=== PATIENT | male | born 1970 | race Caucasian/White ===

== ENCOUNTER 2016-07-01 18:05 | Inpatient (IN) | payer SELFPAY ==
[~2016-07-01] VITALS: Ht 165.1 cm; Wt 67.1 kg
[2016-07-01] MEDS: BLOOD GLUCOSE MONITORING 1 DEV DEV FS SCH ×2 (03:00→04:00)
[~2016-07-01 18:05] MED LIST: INSULIN
[2016-07-01 18:28] VITALS: BP 143/81
[2016-07-01] MEDS ORDERED: NACL 0.9% 1,000 ML IV SCH ×2 (18:38→22:02)
[2016-07-01] MEDS ORDERED: KETOROLAC 30 MG/ML VIAL IVP ONE (18:40)
--- NOTE | 2016-07-01 18:50 | NUR ---
PT TAKEN TO BED 6
--- NOTE | 2016-07-01 18:52 | NUR ---
PT TAKEN TO X RAY
--- NOTE | 2016-07-01 19:20 | NUR ---
RECEIVED REPORT FROM MARCELINO ISAACS. ASSUMED PT CARE.
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
--- NOTE | 2016-07-01 19:32 | NUR ---
Dr. Milan evaluating patient at bedside.
[2016-07-01] MEDS ORDERED: NACL 0.9% 1,000 ML IV ONE ×2 (19:35→19:45)
[2016-07-01] MEDS ORDERED: ONDANSETRON 4 MG/2 ML VIAL IVP ONE (19:45)
[2016-07-01] MEDS ORDERED: MORPHINE SULFATE 4 MG/ML SYR IVP ONE (19:45)
--- NOTE | 2016-07-01 20:29 | NUR ---
RT AT BEDSIDE FOR ABG
[2016-07-01] MEDS ORDERED: POTASSIUM CHL 20 MEQ/NACL 0.9% 1,000 ML IV ONE ×2 (20:30→21:27)
[2016-07-01] MEDS ORDERED: INSULIN HUMAN REGULAR 100 UNITS in NACL 0.9% 100 ML IV ONE (20:35)
--- NOTE | 2016-07-01 20:50 | NUR ---
ABG DONE WITHOUT INCIDENT. RESULTS GIVEN TO DR CAMARA AND SUBMITTED ON [employer]. FAMILY AT BEDSIDE.
[2016-07-01] MEDS ORDERED: INSULIN HUMAN REGULAR IV SCH (20:55)
[2016-07-01] MEDS ORDERED: NACL IV SCH (20:55)
[2016-07-01] MEDS ORDERED: [UNRECOGNIZED DRUG - OTHER] IV SCH (20:55)
--- NOTE | 2016-07-01 21:15 | NUR ---
BLOOD SUGAR 412 MG/DL, STARTED ON REGULAR INSULIN IV DRIP AT 5 UNITS/HR. WITNESSED AND CO-SIGNED BY ROCK ISAACS.
[2016-07-01] MEDS ORDERED: ACETAMINOPHEN 325 MG TAB PO PRN (21:55)
[2016-07-01] MEDS ORDERED: MORPHINE SULFATE 2 MG/ML SYR IVP PRN (21:55)
[2016-07-01] MEDS ORDERED: ONDANSETRON 4 MG/2 ML VIAL IVP PRN (21:55)
[2016-07-01] MEDS ORDERED: DEXTROSE 50% 50 ML SYR IVP PRN (22:05)
[2016-07-01] MEDS ORDERED: INSULIN HUMAN REGULAR 100 UNITS in NACL 0.9% 100 ML IV SCH (22:05)
[2016-07-02] VITALS (11 sets, daily range): BP systolic 114–166; BP diastolic 73–100
--- NOTE | 2016-07-02 00:38 | NUR ---
ACCU 236 NOW, REG INSULIN DRIP ADJUSTED TO 2 UNITS/ML PER MD DR LEDEZMA AWARE
[2016-07-02] MEDS ORDERED: POTASSIUM CHL 20 MEQ/NACL 0.9% 1,000 ML IV ONE (01:05)
[2016-07-02] MEDS ORDERED: MORPHINE SULFATE 5 MG/ML VIAL IVP ONE (01:20)
[2016-07-02] MEDS ORDERED: ONDANSETRON 4 MG/2 ML VIAL IVP ONE (01:20)
[2016-07-02] MEDS ORDERED: DEXT 5% / NACL 0.9% 1,000 ML IV ONE (01:25)
[2016-07-02] MEDS ORDERED: POTASSIUM CHLORIDE IV ONE (01:25)
[2016-07-02] MEDS ORDERED: NACL 0.9% IV ONE (01:25)
[2016-07-02] MEDS ORDERED: IRR IV ONE (01:25)
[2016-07-02] MEDS ORDERED: MORPHINE SULFATE 10 MG/ML SYR ONE (01:42)
[2016-07-02] MEDS: BLOOD GLUCOSE MONITORING 1 DEV DEV FS SCH ×24 (02:05→23:11)
[2016-07-02] MEDS ORDERED: POTASSIUM CHLORIDE 30 MEQ in NACL 0.9% 1,000 ML IV SCH (02:35)
--- NOTE | 2016-07-02 02:45 | NUR ---
RECEIVED PATIENT TRANSFERRED FROM ER VIA GURNEY, INITIAL ASSESSMENT COMPLETED, PATIENT IS AAOX4, ABLE TO FOLLOW COMMANDS AND MAKE NEEDS KNOWN, ON RA, BREATHING EVEN AND UNLABORED, NO S/S OF SOB/DISTRESS NOTED, LUNG SOUNDS CLEAR. SR ON TRANSACTION COORDINATOR, DENIES ANY CHEST PAIN. IV SITE ON RIGHT AC 20 GA RUNNING INSULIN DRIP AT 3 UNIT PER HOUR, IV SITE ON RIGHT HAND 20 GA RUNNING D5 NS AT 125ML/HR. C/O ABD PAIN RADIATION TO LEFT LOWER BACK, 07/05. ACTIVE BOWEL SOUNDS. AFEBRILE, SKIN IS WARM AND DRY TO TOUCH, OLD SCAR WITH SCAB NOTED ON RLE. ABLE TO MOVE ALL EXTREMITIES. SCD'S ON BLE. SAFETY CHECKED, ORIENTED PATIENT TO NEW ENVIRONMENT AND SURROUNDINGS, CALL LIGHT WITHIN REACH, PLACED PATIENT ON COMFORT POSITION, WILL CONTINUE TO MONITOR.
--- NOTE | 2016-07-02 03:00 | NUR ---
Patient will be admitted to care of DR. HAMMONDS . Admited to ICU. Will go to room #2. Belongings list completed. Report to JUANCARLOS ISAACS.
--- NOTE | 2016-07-02 03:10 | NUR ---
PATIENT IS VOMITING WITH SMALL AMOUNT CLEAR YELLOW EMESIS, EDUCATED AND MEDICATED, PAIN ON LEFT ABD TO LEFT FLANK, TOLERABLE. VSS.
--- NOTE | 2016-07-02 03:47 | NUR ---
CALLED DR UGALDE AT 0328 AM FOR CLARIFY ORDER IV BECAUSE ED TOLD TO CHANGE IV FROM D5 NS AT125 ML/H RUNNING WITH PT TO 0.9NS + KCL 30 MEQ AT 125 ML/H K AT 0005 K 4.5 HE TOLD CONTINUE ORDER, THEN HE CALL BACK AGAIN DO NOT FOLLOW ER ORDER WAIT ORDER FROM DR MCELROY ,NOW IV RUNNING D5 NS AT 125 ML/H UNTIL FUTURE ORDER.AND INSULIN DRIP 3 UNITS/H BS 254
[2016-07-02] MEDS ORDERED: POTASSIUM CHL 20 MEQ/D5-1/2NS 1,000 ML IV PRN (03:55)
[2016-07-02] MEDS: POTASSIUM CHL 20 MEQ/NACL 0.9% 1,000 ML IV SCH ×7 (04:25→19:52)
--- NOTE | 2016-07-02 04:30 | NUR ---
PATIENT IS RESTING IN BED QUIETLY, VSS. NO C/O PAIN AT THIS TIME.
--- NOTE | 2016-07-02 06:00 | NUR ---
PT RESTING IN BED, NO CHANGE OF CONDITION AT THIS TIME, VSS, NO C/O PAIN.
--- NOTE | 2016-07-02 07:20 | NUR ---
REPORT GIVEN TO FERNY ESCOBAR FOR CONTINUE OF CARE, PATIENT IS AWAKE, C/O PAIN AND N/V NOTED, STILL ON INSULIN DRIP, VSS. DR. HAMMONDS AT BEDSIDE.
--- NOTE | 2016-07-02 07:25 | NUR ---
RECEIVED REPORT FROM FERNY BAUER. PT IS ON ROOM AIR. PT IS AAOX4. IV TO RIGHT AC #20 AND RIGHT HAND #20 PATENT AND INTACT. PT IS CURRENTLY ON INSULIN DRIP RUNNING AT 2 UNITS/HR. OLD SCAR NOTED TO RIGHT LOWER EXTREMITY, SKIN IS OTHERWISE INTACT. SAFETY PRECAUTIONS IN PLACE WITH BED IN LOWEST POSITION AND SIDE RAILS UP. CALL LIGHT WITHIN REACH. PT IS CURRENTLY SINUS RHYTHM ON THE MONITOR. WILL CONTINUE TO MONITOR.
--- NOTE | 2016-07-02 07:30 | NUR ---
DR. HAMMONDS' GROUP IN TO SEE PT. WILL FOLLOW UP ON ORDERS
[2016-07-02] MEDS: DOCUSATE SODIUM 100 MG GELCAP PO SCH (08:04)
[2016-07-02] MEDS: FAMOTIDINE 20 MG TAB PO SCH (08:04)
--- NOTE | 2016-07-02 08:13 | NUR ---
PATIENT HAS BEEN SCREENED AND CATEGORIZED HIGH NUTRITION RISK. PATIENT WILL BE SEEN WITHIN 1-2 DAYS OF ADMISSION. 07/02/16-07/03/[address]
--- NOTE | 2016-07-02 08:16 | NUR ---
PT C/O NAUSEA AND PAIN TO ABDOMEN AND LOWER BACK, ACHING AND CONTINUOUS, 10/10. ADMINISTERED ZOFRAN AND MORPHINE ORDERED PRN. PT TOLERATED WELL. WILL REASSESS.
[2016-07-02] MEDS: LEVOFLOXACIN 500 MG/D5W PREMIX 100 ML IV SCH (08:23)
[2016-07-02] MEDS: PANTOPRAZOLE 40 MG INJ VIAL IVP SCH (08:23)
--- NOTE | 2016-07-02 09:04 | NUR ---
G DRAWN ON RR WITHOUT INCIDENT AND RESULTS GIVEN TO DR. BUSTILLSO
--- NOTE | 2016-07-02 09:52 | NUR ---
CHECKED ON PT. RESTING AT THIS TIME, AROUSABLE. CALL LIGHT WITHIN REACH.
--- NOTE | 2016-07-02 11:22 | NUR ---
PT'S SISTERS PRESENT AT BEDSIDE.
[2016-07-02] MEDS: KETOROLAC 30 MG/ML VIAL IVP PRN ×2 (11:45→20:45)
--- NOTE | 2016-07-02 11:47 | NUR ---
PT C/O PAIN TO LEFT LOWER BACK, THROBBING AND CONTINUOUS, 10/10. ADMINISTERED KETOROLAC ORDERED PRN. PT TOLERATED WELL. WILL REASSESS.
--- NOTE | 2016-07-02 12:35 | NUR ---
CHECKED ON PT. RESTING AT THIS TIME, AROUSABLE. CALL LIGHT WITHIN REACH.
--- NOTE | 2016-07-02 14:02 | NUR ---
07/02/16 RD INITIAL ASSESSMENT COMPLETED PLEASE REFER TO NUTRITION ASSESSMENT UNDER CARE ACTIVITY FOR ESTIMATED NUTRITIONAL NEEDS. RD RECOMMENDATIONS: 1. CONTINUE NPO MEDICALLY NECESSARY PER MD 2. WHEN MEDICALLY APPROPRIATE CONSIDER ADVANCE DIET TOLERATED TO CCHO 60 GM, CARDIAC DIET. 3. RD PROVIDED PT WITH DM DIET EDUCATION 4. RD WILL F/U 3-5 DAYS; MODERATE RISK. DONNA BOOTH RD
--- NOTE | 2016-07-02 14:23 | NUR ---
CHECKED ON PT. ALL NEEDS MET AT THIS TIME. CALL LIGHT WITHIN REACH.
[2016-07-02] MEDS: METOCLOPRAMIDE 10 MG/2 ML INJ VIAL IVP PRN (14:38)
--- NOTE | 2016-07-02 14:40 | NUR ---
PT C/O NAUSEA. ADMINISTERED REGLAN ORDERED PRN. PT TOLERATED WELL. WILL CONTINUE TO MONITOR.
--- NOTE | 2016-07-02 15:26 | NUR ---
CHECKED ON PT. RESTING AT THIS TIME, AROUSABLE. CALL LIGHT WITHIN REACH.
--- NOTE | 2016-07-02 16:40 | NUR ---
G DRAWN ON LR WITHOUT INCIDENT AND RESULTS GIVEN TO DR. BUSTILLOS
--- NOTE | 2016-07-02 18:41 | NUR ---
PT'S SISTERS PRESENT AT BEDSIDE. CALL LIGHT WITHIN REACH.
--- NOTE | 2016-07-02 19:14 | NUR ---
ENDORSED CARE TO FERNY WEEKS. PT IN STABLE CONDITION.
--- NOTE | 2016-07-02 20:00 | NUR ---
PATIENT SLEEPING, EASILY AROUSED, SR ON THE MONITOR, ON ROOM AIR, WITH IVF OF NS AT 20 MEQ KCL AT 200 MLS/HR, IV SITE ON RAC G#20 AND SALINE LOCK ON RIGHT HAND BOTH PATENT AND INTACT, BLOOD SUGAR VIA FINGERSTICK 174, REGULAR INSULIN DRIP TO REMAIN AT 1 UNIT/HR PER PROTOCOL, DENIES PAIN.
[2016-07-02] MEDS: AMITRIPTYLINE 25 MG TAB PO SCH (20:45)
--- NOTE | 2016-07-02 21:15 | NUR ---
PAIN REASSESSMENT DONE AT THIS TIME AFTER GIVING PATIENT TORADOL 30 MG IVP AT 2044 FOR THROBBING LOWER BACK PAIN, 02/04. PATIENT SLEEPING COMFORTABLY.
--- NOTE | 2016-07-02 21:42 | NUR ---
SPOKE WITH DR. UGALDE AND INFORMED CURRENT ANION GAP DRAWN AT 2030 (15.1), PER MD TO GIVE HIM A CALL IF ANION GAP IS TRENDING HIGH ON THE NEXT BMP AT 0000.
--- NOTE | 2016-07-02 22:28 | NUR ---
BS AT 2205 WAS 167, REMAINS AT 1 UNIT/HR OF REGULAR INSULIN DRIP, PT SLEEPING COMFORTABLY.
[2016-07-03] VITALS (10 sets, daily range): BP systolic 117–177; BP diastolic 63–109
[2016-07-03] MEDS: BLOOD GLUCOSE MONITORING 1 DEV DEV FS SCH ×11 (00:02→21:59)
[2016-07-03] MEDS: HYDROcodone/APAP 7.5/325 MG 1 TAB PO PRN ×2 (00:02→08:47)
--- NOTE | 2016-07-03 00:27 | NUR ---
NORCO 1 TAB GIVEN AT 0002 FOR LOWER BACK PAIN, BS 166, REGULAR INSULIN DRIP STILL AT 1 UNIT/HR.
--- NOTE | 2016-07-03 00:43 | NUR ---
DR. UGALDE NOTIFIED ABOUT ANION GAP RESULT AT 0000 (17.7), NO ORDER GIVEN.
[2016-07-03] MEDS: POTASSIUM CHL 20 MEQ/NACL 0.9% 1,000 ML IV SCH ×2 (01:10→05:39)
--- NOTE | 2016-07-03 02:28 | NUR ---
PATIENT ASLEEP, CONTINUE BLOOD SUGAR CHECK Q1H, BS AT 0200 WAS 182.
--- NOTE | 2016-07-03 04:15 | NUR ---
SLEEPING COMFORTABLY, BS 181.
[2016-07-03] MEDS: KETOROLAC 30 MG/ML VIAL IVP PRN ×3 (05:13→20:42)
--- NOTE | 2016-07-03 06:00 | NUR ---
BS 156, CONTINUE 1UNIT/HR OF REGULAR INSULIN DRIP.
--- NOTE | 2016-07-03 06:23 | NUR ---
TORADOL 30 MG IVP GIVEN AT 0513. AM CARE PROVIDED, PATIENT SLEEPING NOW.
--- NOTE | 2016-07-03 07:32 | NUR ---
RECEIVED REPORT FROM MICKY ISAACS. PT IS SLEEPING BUT EASILY AROUSED. BEDSIDE MONITOR SHOWS SR. PT ON ROOM AIR, NO S/S OF RESPIRATORY DISTRESS NOTED. ABDOMEN SOFT, NONTENDER, WITH ACTIVE BOWEL SOUND. IV TO RIGHT HAND #20 RUNNING 0.9% NS + KCL 20 MEQ AT 200 ML/HR, INSULIN DRIP AT 2 UNITS/HR. BOTH INTACT AND PATENT. IV TO LEFT AC # 20 SALINE LOCKED. FREELY FLUSHED. PT CAN MOVE ALL HIS EXTREMITIES. NO C/O PAIN AT THIS TIME, HOB ELEVATED TO 30 DEGREES WITH LOW BED POSITION,SIDE RAILS UP X2. CALL LIGHT IN REACH, POC DISCUSSED WITH PT, PT VERBALIZED UNDERSTANDING.WILL CONTINUE TO MONITOR.
[2016-07-03] MEDS ORDERED: DEXTROSE 50% 50 ML SYR IVP PRN (07:35)
[2016-07-03] MEDS: INSULIN LISPRO SLIDING SCALE 100 UNITS/ML VIAL SUBQ PRN ×4 (07:58→22:05)
--- NOTE | 2016-07-03 08:00 | NUR ---
CLARIFIED WITH DR. BUSTILLOS. D/C INSULIN DRIP 2HR AFTER SUBQ HUMALOG SLIDING SCALE COVERED.
[2016-07-03] MEDS: NACL 0.9% 1,000 ML IV SCH ×3 (08:01→18:33)
--- NOTE | 2016-07-03 08:30 | NUR ---
APPLIED K-PAD TO PT BACK.
[2016-07-03] MEDS: FAMOTIDINE 20 MG TAB PO SCH (08:48)
[2016-07-03] MEDS: ATORVASTATIN 20 MG TAB PO SCH (08:48)
[2016-07-03] MEDS: DOCUSATE SODIUM 100 MG GELCAP PO SCH (08:48)
[2016-07-03] MEDS: CYCLOBENZAPRINE 10 MG TAB PO SCH ×3 (08:49→17:05)
[2016-07-03] MEDS: PANTOPRAZOLE 40 MG INJ VIAL IVP SCH (08:50)
[2016-07-03] MEDS: LEVOFLOXACIN 500 MG/D5W PREMIX 100 ML IV SCH (08:50)
[2016-07-03] MEDS ORDERED: ATORVASTATIN 20 MG TAB PO SCH (09:00)
--- NOTE | 2016-07-03 10:02 | NUR ---
INSULIN DRIP DISCONTINUED.
--- NOTE | 2016-07-03 11:00 | NUR ---
WOUND CARE EVALUATION NOTES: REASON FOR EVALUATION: RIGHT MEDIAL LOWER EXTREMITY SCARRING COMPLETE SKIN ASSESSMENT DONE ON THIS 46 Y/O MALE PATIENT FROM HOME TO [facility], WITH INITIAL DIAGNOSIS OF DIABETIC KETOACIDOSIS. PAST MEDICAL HISTORY INCLUDE DM2. ALL ABOVE INFORMATION WAS OBTAINED FROM THE ADMISSION H&P. LABS ARE WBC 8.7, H/H 13.3/38.4, GLUCOSE 183, ALBUMIN 4.0, PT/INR 9.2/1.0 AND PTT 23.8. CURRENT MEDS INCLUDE INSULIN, LEVOFLOXACIN, KETOROLAC AND NORCO. PATIENT IS AWAKE, COMPLAINING OF EPIGASTRIC PAIN. PRIMARY RN IS AWARE, SHE STATED THAT SHE GAVE PAIN MEDS EARLIER. SKIN WARM TO TOUCH WNL, TOENAILS WNL, NO EDEMA, WITH HAIR GROWTH AND +2 BILATERAL PEDAL PULSES. URINE AND BOWEL CONTINENT, ABLE TO MAKE HIS NEEDS KNOWN. INITIAL PLAN OF CARE AND PRESSURE PREVENTIVE MEASURES DISCUSSED, UNABLE TO VERBALIZE FULL UNDERSTANDING DUE TO EPIGASTRIC PAIN. WILL REINFORCE TEACHING. INTEGUMENTARY: RIGHT MEDIAL LOWER LEG - SURGICAL - NUR ESCHAR OVER SCARRING. RECOMMENDATIONS: -PAINT RIGHT MEDIAL LOWER LEG WITH BETADINE BIDWC AND LEAVE OPEN TO AIR -TURN AND REPOSITION PATIENT Q2H -ASSESS AND MONITOR SKIN CONDITION DURING POSITION CHANGE, PLEASE PAY PARTICULAR ATTENTION TO SACRALCOCCYX, ELBOWS AND HEELS -OFFLOAD BILATERAL HEELS BY PLACING PILLOWS UNDER CALVES AT ALL TIMES, UNLESS OTHERWISE CONTRAINDICATED -PODIATRY CONSULT IF OK WITH PMD. RECOMMENDATIONS DISCUSSED WITH PRIMARY RN AND RESIDENT PHYSICIAN, DR. BUSTILLOS. WILL FOLLOW UP Q 7 DAYS AND PRN. PLEASE CONTACT [facility] FOR ANY CONCERNS, QUESTIONS AND CHANGES IN WOUND CONDITION.
--- NOTE | 2016-07-03 12:00 | NUR ---
PT IS SLEEPING BUT EASILY AWAKING BY ASSESSMENT. [employer] ADVISORS SHOWS SR. NO S/S OF RESPIRATORY DISTRESS NOTED. WILL CONTINUE TO MONITOR.
--- NOTE | 2016-07-03 12:20 | NUR ---
LUNCH TRAY SERVED, PT REFUSED AND JUST WANTED TO SLEEP.
--- NOTE | 2016-07-03 14:14 | NUR ---
NOTIFIED DR. BUSTILLOS PT HAS EPIGASTRIC PAIN AND NO APPETITE.
--- NOTE | 2016-07-03 15:36 | NUR ---
PT SLEEPING. NO S/S OF RESPIRATORY DISTRESS NOTED. BP 134/81. HR 76. RESP 12, O2 SAT 100%. WILL CONTINUE TO MONITOR.
--- NOTE | 2016-07-03 16:40 | NUR ---
DR. BUSTILLOS CAME IN TO ASSESS PT, UPDATED PT'S CONDITION, ORDER RECEIVED, WILL CARRY OUT.
[2016-07-03] MEDS: METOCLOPRAMIDE 10 MG/2 ML INJ VIAL IVP PRN (17:03)
--- NOTE | 2016-07-03 18:00 | NUR ---
PT AWAKE, ALERT, ORIENTED.PT'S AT BEDSIDE. UPDATED PT'S CONDITION. PT'S AWARE PT WILL BE TRANSFERRED TO [facility].
[2016-07-03] MEDS: ALUMINUM HYD/MAG/SIMETHICONE 30 ML UDC PO PRN (18:16)
--- NOTE | 2016-07-03 18:16 | NUR ---
PT HAS ABDOMINAL PAIN. MYLANTA 30 ML PO GIVEN.TRANSFERRED PT TO [facility] . BEDSIDE REPORT GIVEN TO [facility].
--- NOTE | 2016-07-03 18:45 | NUR ---
RECEIVED REPORT FROM AIRLINE MANAGERIAL SUPERVISOR. PT IS SLEEPING. NO S/S OF ACUTE CARDIAC/RESPIRATORY DISTRESS OR DISCOMFORT. GUEST AT BEDSIDE. VS STABLE. SAFETY MEASURES IN PLACE, CALL LIGHT WITHIN REACH. WILL CONTINUE PLAN OF CARE AND CONTINUE TO MONITOR.
--- NOTE | 2016-07-03 19:30 | NUR ---
ENDORSED REPORT FOR ASSISTANT TEACHING PROFESSOR RN. PT HAS NO S/S OF ACUTE DISTRESS OR DISCOMFORT. PT IN STABLE CONDITION.
--- NOTE | 2016-07-03 19:31 | NUR ---
RECD. RESTING IN BED, SLEEPING BUT EASILY WAKES UP WHEN NAME CALLED. RESPIRATION EVEN AND UNLABORED. SEEMS DROWSY. WENT BACK TO SLEEP AT ONCE AFTER ANSWERING QUESTIONS. IV OF NS AT 125 ML/HR INFUSING RIGHT HAND G20. NOTED SCAB ON THE RIGHT LOWER EXTREMITY. ON BILATERAL LE SEQUENTIALS. PLAN OF CARE DISCUSSED WITH AND PATIENT. VERBALIZED UNDERSTANDING. DENIES PAIN 0/10. VS STABLE.
[2016-07-03] MEDS: AMITRIPTYLINE 25 MG TAB PO SCH (21:51)
--- NOTE | 2016-07-03 22:00 | NUR ---
Patient's Plan of Care was discussed and reviewed with RECREATIONAL SPORTS DIRECTOR: LAURA ZAYAS
[2016-07-04] VITALS: BP 156/96
--- NOTE | 2016-07-04 | NUR ---
SLEEPING COMFORTABLY IN BED.
[2016-07-04] MEDS: METOCLOPRAMIDE 10 MG/2 ML INJ VIAL IVP PRN ×3 (00:46→21:09)
--- NOTE | 2016-07-04 00:46 | NUR ---
VOMITED MODERATE AMOUNT OF YELLOWISH FLUID, MEDICATED WITH REGLAN 5 MG. IVP BY FERNY KENNEDY.
[2016-07-04] MEDS: NACL 0.9% 1,000 ML IV SCH ×5 (02:18→20:59)
[2016-07-04 03:10] VITALS: BP 158/95
[2016-07-04] MEDS: KETOROLAC 30 MG/ML VIAL IVP PRN ×2 (03:11→08:58)
--- NOTE | 2016-07-04 06:00 | NUR ---
VOMITED SMALL AMOUNT OF YELLOWISH LIQUID, ICE CHIPS GIVEN. WILL MEDICATE ORDERED.
[2016-07-04] MEDS: BLOOD GLUCOSE MONITORING 1 DEV DEV FS SCH ×4 (06:23→21:04)
[2016-07-04] MEDS: INSULIN LISPRO SLIDING SCALE 100 UNITS/ML VIAL SUBQ PRN ×4 (06:24→21:04)
--- NOTE | 2016-07-04 07:05 | NUR ---
RECEIVED REPORT FROM NIGHT NURSE, PT IS AAOX4 PASHTO SPEAKING, PT IS ON ROOM AIR, IV TO RIGHT AC 2OG SALINE LOCK, RIGHT HAND 2OG INFUSING WELL, RIGHT LOWER LEG OLD SURGICAL SCAB. INITIAL ASSESSMENT COMPLETED, REVIEWED PLAN OF CARE WITH PT PT VERBALIZED UNDERSTANDING, ALL SAFETY PRECAUTIONS MET, ALL NEEDS MET. CALL LIGHT WITHIN REACH. WILL CONTINUE TO MONITOR.
--- NOTE | 2016-07-04 07:05 | NUR ---
RESTING IN BED, CONDITION REMAIN STABLE. ENDORSED TO FERNY MCMAHON FOR CONTINUITY OF CARE.
[2016-07-04 08:00] VITALS: BP 155/90
[2016-07-04] MEDS: FAMOTIDINE 20 MG TAB PO SCH (08:57)
[2016-07-04] MEDS: CYCLOBENZAPRINE 10 MG TAB PO SCH ×3 (08:57→16:48)
[2016-07-04] MEDS: DOCUSATE SODIUM 100 MG GELCAP PO SCH (08:57)
[2016-07-04] MEDS: ATORVASTATIN 20 MG TAB PO SCH (08:57)
[2016-07-04] MEDS: LEVOFLOXACIN 500 MG/D5W PREMIX 100 ML IV SCH (08:57)
[2016-07-04] MEDS: PANTOPRAZOLE 40 MG INJ VIAL IVP SCH (08:58)
--- NOTE | 2016-07-04 08:58 | NUR ---
DUE MEDICATIONS GIVEN, PT C/O OF EPIGASTRIC PAIN 8/10 MEDICATED PER MD ORDERS. PT VOMITED 100ML. PT STATES THAT MILK HELPS WITH THE PAIN.
--- NOTE | 2016-07-04 11:01 | NUR ---
CHECKED IN ON PT PT CURRENTLY SLEEPING. CALL LIGHT WITHIN REACH. WILL CONTINUE TO MONITOR.
--- NOTE | 2016-07-04 12:15 | NUR ---
DUE MEDICATIONS GIVEN. PT C/O NAUSEA, REGLAN DIRECTOR WEIGHTS AND MEASURES PER MD ORDERS. PT CURRENTLY RESTING IN BED. ALL NEEDS MET. PT STATES BACK DISCOMFORT BUT REFUSED THE HEATING PAD. CALL LIGHT WITHIN REACH. WILL CONTINUE TO MONITOR.
--- NOTE | 2016-07-04 13:06 | NUR ---
APPLIED BETADINE TO LEFT RIGHT LOWER MEDIAL OLD SURGICAL SCAB. CALL LIGHT WITHIN REACH. WILL CONTINUE TO MONITOR.
[2016-07-04] MEDS ORDERED: HYDROmorphone 1 MG/ML AMP IVP SCH (13:25)
[2016-07-04] MEDS ORDERED: NACL 0.9% 500 ML IV SCH (13:35)
--- NOTE | 2016-07-04 13:50 | NUR ---
BOLUS OF 500NS ADMINISTERED AT THIS TIME,PAIN MEDIATION GIVEN PER MD ORDERS. CALL LIGHT WITHIN [facility] WILL CONTINUE TO MONITOR.
--- NOTE | 2016-07-04 15:00 | NUR ---
CONNECTED PT BACK TO IVF AT 200ML/HR, PT CURRENTLY SLEEPING. CALL LIGHT WITHIN REACH. WILL CONTINUE TO MONITOR.
[2016-07-04 16:00] VITALS: BP 161/99
[2016-07-04] MEDS ORDERED: LISINOPRIL 10 MG TAB PO SCH (16:21)
[2016-07-04] MEDS: INSULIN LISPRO 100 UNITS/ML VIAL SUBQ SCH (16:52)
--- NOTE | 2016-07-04 16:55 | NUR ---
PT CURRENTLY SLEEPING, CALL LIGHT WITHIN REACH, WILL CONTINUE TO MONITOR.
--- NOTE | 2016-07-04 18:50 | NUR ---
PT CURRENTLY RESTING IN BED, AT BEDSIDE. CALL LIGHT WITHIN REACH.
--- NOTE | 2016-07-04 19:15 | NUR ---
ENDORSED PLAN OF CARE TO NIGHT NURSE. PT IN STABLE CONDITION
--- NOTE | 2016-07-04 19:16 | NUR ---
RECD. RESTING IN BED, AWAKE, A/OX4. RESPIRATION EVEN AND UNLABORED. APPEARS WEAK. CLAIMED STILL VOMITS OCCASIONALLY, NO N/V NOTED AT THIS TIME. IV OF NS AT 200 ML/HR INFUSING, RIGHT HAND G.20. SAFETY MEASURES ENFORCED. ON BILATERAL LEG SEQUENTIALS. PLAN OF CARE FOR THE SHIFT DISCUSSED WITH PATIENT AND . VERBALIZED UNDERSTANDING. DENIES PAIN 0/10.
--- NOTE | 2016-07-04 19:32 | NUR ---
Patient's Plan of Care was discussed and reviewed with DEWAXER: KAREEM
[2016-07-04] MEDS: AMITRIPTYLINE 25 MG TAB PO SCH (20:59)
[2016-07-04] MEDS: INSULIN DETEMIR 100 UNITS/ML 10 ML VIAL SUBQ SCH (21:02)
--- NOTE | 2016-07-04 21:09 | NUR ---
RESTING IN BED, NO N/V NOTED.
--- NOTE | 2016-07-04 21:09 | NUR ---
NAUSEATED, VOMITED SMALL AMOUNT OF LIQUID. MEDICATED WITH REGLAN 5 MG. IVP BY FERNY MÉNDEZ.
[2016-07-05] VITALS: BP 110/72
--- NOTE | 2016-07-05 | NUR ---
SLEEPING COMFORTABLY IN BED.
[2016-07-05] MEDS: ALUMINUM HYD/MAG/SIMETHICONE 30 ML UDC PO PRN ×4 (01:33→22:45)
[2016-07-05] MEDS: NACL 0.9% 1,000 ML IV SCH ×4 (03:10→17:40)
[2016-07-05] MEDS: KETOROLAC 30 MG/ML VIAL IVP PRN ×3 (05:22→20:42)
[2016-07-05] MEDS: BLOOD GLUCOSE MONITORING 1 DEV DEV FS SCH ×4 (06:34→20:51)
[2016-07-05] MEDS: INSULIN LISPRO SLIDING SCALE 100 UNITS/ML VIAL SUBQ PRN ×4 (06:35→22:32)
--- NOTE | 2016-07-05 07:10 | NUR ---
CONDITION REMAIN STABLE. ENDORSED TO AM NURSE FOR CONTINUITY OF CARE.
--- NOTE | 2016-07-05 07:11 | NUR ---
RECEIVED PT FROM STEPH SANCHEZ ASLEEP BUT EASILY AWAKEN, AAOX4, WITH NO S/S OF RESPIRATORY DISTRESS. WITH IV ACCESS ON RIGHT HAND G20 INFUSING FLUIDS WELL, ALSO WITH IV ON RIGHT AC 20G ON SALINE LOCK PATENT AND INTACT. WITH SCAB ON RIGHT LOWER EXTREMITY. PT COMPLAINED OF PAIN ON ABDOMINAL AREA, WILL GIVE MEDS ORDERED. DISCUSSED PLAN OF CARE, PT VERBALIZED UNDERSTANDING. CALL LIGHT WITHIN REACH, WILL CONTINUE TO MONITOR.
[2016-07-05 08:00] VITALS: BP 163/103
[2016-07-05] MEDS: DOCUSATE SODIUM 100 MG GELCAP PO SCH (08:08)
[2016-07-05] MEDS: HYDROcodone/APAP 7.5/325 MG 1 TAB PO PRN ×3 (08:09→22:45)
[2016-07-05] MEDS: ATORVASTATIN 20 MG TAB PO SCH (08:09)
[2016-07-05] MEDS: FAMOTIDINE 20 MG TAB PO SCH (08:09)
[2016-07-05] MEDS: CYCLOBENZAPRINE 10 MG TAB PO SCH ×3 (08:09→16:44)
[2016-07-05] MEDS: LISINOPRIL 10 MG TAB PO SCH (08:09)
[2016-07-05] MEDS: PANTOPRAZOLE 40 MG INJ VIAL IVP SCH (08:10)
[2016-07-05] MEDS: LEVOFLOXACIN 500 MG/D5W PREMIX 100 ML IV SCH (08:10)
[2016-07-05] MEDS: INSULIN LISPRO 100 UNITS/ML VIAL SUBQ SCH ×3 (08:25→16:54)
--- NOTE | 2016-07-05 08:25 | NUR ---
DUE MEDS GIVEN, PT TOLERATED WELL. ALL NEEDS MET, CALL LIGHT WITHIN REACH, WILL CONTINUE TO MONITOR.
[2016-07-05] MEDS ORDERED: POTASSIUM CHLORIDE 10 MEQ TABER PO SCH (09:00)
[2016-07-05] MEDS: CALCIUM CARBONATE 500 MG TAB PO SCH ×2 (09:31→22:25)
--- NOTE | 2016-07-05 09:47 | NUR ---
PT ASLEEP, WITH NO S/S OF DISTRESS. NO COMPLAINTS AT THIS TIME. CALL LIGHT WITHIN REACH, WILL CONTINUE TO MONITOR.
[2016-07-05] MEDS: METOCLOPRAMIDE 10 MG/2 ML INJ VIAL IVP PRN (10:05)
--- NOTE | 2016-07-05 10:10 | NUR ---
PT COMPLAINED OF NAUSEA AND VOMITING, MEDICATED WILL REGLAN. INFORMED DR. BUSTILLOS OF ABG RESULTS.
--- NOTE | 2016-07-05 12:51 | NUR ---
PT ASLEEP AT THIS TIME. ALL NEEDS MET. CALL LIGHT WITHIN REACH, WILL CONTINUE TO MONITOR.
--- NOTE | 2016-07-05 13:50 | NUR ---
PT AWAKE WITH RELATIVES AT BEDSIDE. NO S/S OF DISTRESS. CALL LIGHT WITHIN REACH, WILL CONTINUE TO MONITOR.
--- NOTE | 2016-07-05 15:45 | NUR ---
BLOOD SUGAR RECHECKED, 160 MG/DL. PER DR BUSTILLOS RUN 100 ML OF D5NS FOR ONE HOUR AND RECHECK BLOOD SUGAR. IF BLOOD SUGAR IS >200, DISCONTINUE D5NS AND RUN 0.9% NACL FOR 200ML/HR. WILL RECHECK BLOOD SUGAR AGAIN
[2016-07-05 16:00] VITALS: BP 159/98
--- NOTE | 2016-07-05 16:45 | NUR ---
PT BLOOD SUGAR IS 152, PT STARTED ON D5 NS 100 ML/HR TO BE GIVEN FOR ONE HOUR AND TITRATE PER DR. BUSTILLOS.
[2016-07-05] MEDS: DEXT 5% /NACL 0.9% 1,000 ML IV PRN (17:01)
[2016-07-05 18:09] VITALS: BP 140/88
--- NOTE | 2016-07-05 18:57 | NUR ---
BLOOD SUGAR AT THIS TIME IS 170MG/DL. CONTINUE ON D5NS 100ML/HR. WILL ENDORSE TO FIRST PRESS OPERATOR TO RECHECK BLOOD SUGAR
--- NOTE | 2016-07-05 19:14 | NUR ---
ENDORSED TO FERNY ESCOBAR IN STABLE CONDITION FOR CONTINUITY OF CARE
--- NOTE | 2016-07-05 19:16 | NUR ---
RECEIVED REPORT FROM SETH ISAACS FOR CONTINUITY OF CARE. PATIENT IS A&OX4, DISCUSSED PLAN OF CARE WITH PATIENT, VERBALIZED UNDERSTANDING. SHIFT ASSESSMENT DONE, VS TAKEN, STABLE. NO S/S OF RESPIRATORY DISTRESS NOTED ON ROOM AIR. PATIENT STATES TOLERABLE PAIN AT THIS TIME, WILL REASSESS. IV RIGHT HAND 20 GAUGE PATENT AND INFUSING FLUIDS WELL. PATIENT HAS SCAB TO RT LOWER EXTREMITY. SCD ON LT LEG. SAFETY PRECAUTIONS ENFORCED. NPO ENFORCED. FAMILY MEMBERS AT BEDSIDE. CALL LIGHT WITHIN REACH, WILL CONTINUE TO MONITOR.
[2016-07-05 20:00] VITALS: BP 154/86
--- NOTE | 2016-07-05 20:42 | NUR ---
PT C/O ABDOMINAL PAIN 10/ MEDICATED WITH TORADOL PER MD ORDER.
--- NOTE | 2016-07-05 20:51 | NUR ---
BLOOD SUGAR CHECKED, 204. IMPLEMENTED NS IVF PER MD ORDER.
[2016-07-05] MEDS: AMITRIPTYLINE 25 MG TAB PO SCH (22:25)
[2016-07-05] MEDS: INSULIN DETEMIR 100 UNITS/ML 10 ML VIAL SUBQ SCH (22:26)
--- NOTE | 2016-07-05 22:32 | NUR ---
DUE MEDICATIONS ADMINISTERED, TOLERATED WELL. PT C/O ABDOMINAL PAIN NOT RELIEVED, WILL MEDICATE.
--- NOTE | 2016-07-05 22:45 | NUR ---
DUE PAIN MEDICATIONS GIVEN, TOLERATED WELL. WILL CONTINUE TO MONITOR.
[2016-07-06] VITALS: BP 152/90
--- NOTE | 2016-07-06 00:02 | NUR ---
VS TAKEN, STABLE. PATIENT IS SLEEPING. NO S/S OF DISTRESS NOTED. CALL LIGHT WITHIN REACH.
[2016-07-06] MEDS: NACL 0.9% 1,000 ML IV SCH ×5 (00:59→23:40)
--- NOTE | 2016-07-06 02:07 | NUR ---
PATIENT IS SLEEPING. NO DISTRESS NOTED AT THIS TIME. WILL CONTINUE TO MONITOR.
--- NOTE | 2016-07-06 03:21 | NUR ---
EMPTIED URINAL, 450 ML CLEAR YELLOW URINE.
[2016-07-06] MEDS: METOCLOPRAMIDE 10 MG/2 ML INJ VIAL IVP PRN (04:51)
[2016-07-06] MEDS: ALUMINUM HYD/MAG/SIMETHICONE 30 ML UDC PO PRN ×2 (04:51→20:54)
[2016-07-06] MEDS: KETOROLAC 30 MG/ML VIAL IVP PRN (05:01)
--- NOTE | 2016-07-06 05:01 | NUR ---
PT C/O NAUSEA, VOMITING SMALL AMOUNT DARK BROWN. AND C/O ABDOMINAL PAIN, MEDICATED PER MD ORDER.
[2016-07-06] MEDS: BLOOD GLUCOSE MONITORING 1 DEV DEV FS SCH ×4 (06:18→20:54)
[2016-07-06] MEDS: INSULIN LISPRO SLIDING SCALE 100 UNITS/ML VIAL SUBQ PRN ×4 (06:47→21:13)
--- NOTE | 2016-07-06 07:15 | NUR ---
ASSUMED CONTINUITY OF CARE. NO SIGNS AND SYMPTOMS OF ACUTE DISTRESS NOTED. INITIAL ASSESSMENT DONE. FAMILIARIZED WITH SURROUNDINGS. KEEP COMFORTABLE ON BED. EXPLAINED DIAGNOSIS, PLAN OF CARE, PAIN MANAGEMENT TEACHING, USE OF CALL LIGHT/BED/TV/BATHROOM. VERBALIZED UNDERSTANDING. CALL LIGHT WITHIN REACH.
--- NOTE | 2016-07-06 07:22 | NUR ---
ENDORSED PATIENT TO DAY OUTSIDE PARTS SALESMAN FOR CONTINUITY OF CARE, PATIENT IS IN STABLE CONDITION.
--- NOTE | 2016-07-06 07:30 | NUR ---
DR. CAVAZOS CAME, CHECKED PT. CHART. NO ORDER RECEIVED.
--- NOTE | 2016-07-06 07:30 | NUR ---
Patient's Plan of Care was discussed and reviewed with STEPH: HELENA.
[2016-07-06 08:00] VITALS: BP 153/96
[2016-07-06] MEDS: INSULIN LISPRO 100 UNITS/ML VIAL SUBQ SCH ×3 (08:00→16:37)
--- NOTE | 2016-07-06 08:35 | NUR ---
BLOOD SUGAR 126. STARTED IVF -D5 NS AT 100 ML/HR PER MD ORDER.
[2016-07-06] MEDS: LISINOPRIL 10 MG TAB PO SCH (08:37)
[2016-07-06] MEDS: FAMOTIDINE 20 MG TAB PO SCH (08:37)
[2016-07-06] MEDS: CALCIUM CARBONATE 500 MG TAB PO SCH ×2 (08:38→20:54)
[2016-07-06] MEDS: ATORVASTATIN 20 MG TAB PO SCH (08:38)
[2016-07-06] MEDS: DOCUSATE SODIUM 100 MG GELCAP PO SCH (08:38)
[2016-07-06] MEDS: CYCLOBENZAPRINE 10 MG TAB PO SCH ×3 (08:38→16:35)
[2016-07-06] MEDS: PANTOPRAZOLE 40 MG INJ VIAL IVP SCH (08:46)
[2016-07-06] MEDS: LEVOFLOXACIN 500 MG/D5W PREMIX 100 ML IV SCH (08:46)
--- NOTE | 2016-07-06 09:12 | NUR ---
INFORMED TAMIKO PARKER OF PT. K LEVEL 3.1.
--- NOTE | 2016-07-06 10:45 | NUR ---
DR. PACK CAME TO PT. ROOM AND SPOKE TO PT. AND PT. -LASHANDA.
[2016-07-06] MEDS ORDERED: METOCLOPRAMIDE 10 MG/2 ML INJ VIAL IVP PRN (10:55)
[2016-07-06] MEDS ORDERED: PROMETHAZINE 25 MG/ML VIAL IM PRN (10:55)
[2016-07-06] MEDS ORDERED: POTASSIUM CHLORIDE 40 MEQ, LIDOCAINE 1% 25 MG in NACL 0.9% 250 ML IV SCH (11:30)
[2016-07-06 11:35] VITALS: BP 143/84
--- NOTE | 2016-07-06 11:35 | NUR ---
WENT TO CT VIA WHEELCHAIR WITH ONLINE COMMUNICATIONS MANAGER -BILL. NO C/O PAIN. NO SOB, NOTED. IN STABLE CONDITION.
--- NOTE | 2016-07-06 11:49 | NUR ---
BACK FROM CT VIA WHEELCHAIR, ACCOMAPNIED BY PT. -LASHANDA. NO C/O PAIN. NO C/O NAUSEA. NO SOB, NOTED. IN STABLE CONDITION. KEEP COMFORTABLE ON BED.
--- NOTE | 2016-07-06 13:23 | NUR ---
07/07/15 RD FOLLOW UP COMPLETED PLEASE REFER TO NUTRITION PROGRESS NOTE UNDER CARE ACTIVITY FOR ESTIMATED NUTRITION NEEDS. RD RECOMMENDATIONS: 1. CONTINUE NPO MEDICALLY NECESSARY PER MD 2. WHEN MEDICALLY APPROPRIATE CONSIDER ADVANCE DIET TOLERATED TO CCHO 60 GM, CARDIAC DIET. --NOTE PT WITH PMH OF DYSLIPIDEMIA AND DM AND ELEVATED BLOOD PRESSURE AND GLUCOSE LEVELS. 3. IF PT WILL NEED NUTRITION SUPPORT, PLEASE CONSULT RD. 4. RD WILL F/U 3-5 DAYS; MODERATE RISK. MELONIE JEAN, RD
--- NOTE | 2016-07-06 16:05 | NUR ---
RT KEE CAME FOR PT. INCENTIVE SPIROMETER TEACHING AND TREATMENT.
--- NOTE | 2016-07-06 19:10 | NUR ---
BEDSIDE REPORT GIVEN TO DEMETRIUS ANDUJAR -FERNY. IVF INFUSING WELL. IN STABLE CONDITION.
--- NOTE | 2016-07-06 19:30 | NUR ---
RECEIVED REPORT FROM DAY RN AT BEDSIDE, PATIENT IS RESTING IN BED, ON ROOM AIR, NO SOB OR SIGN OF DISTRESS AT THIS TIME, IV TO RIGHT HAND 20G PATENT WITH IVF INFUSING WELL, RIGHT CALF WOUND NOTED CARROT BUNCHER, PATIENT C/O PAIN IN ABDOMEN, WILL ADMINISTER PAIN MEDS PER MD ORDER, DISCUSSED PLAN OF CARE WITH PATIENT, PATIENT VERBALIZED UNDERSTANDING, SAFETY MEASURES CHECKED, CALL LIGHT WITHIN REACH. WILL CONTINUE TO MONITOR.
[2016-07-06 20:00] VITALS: BP 157/94
[2016-07-06] MEDS: AMITRIPTYLINE 25 MG TAB PO SCH (20:54)
--- NOTE | 2016-07-06 20:58 | NUR ---
PM MEDS ADMINISTERED, PATIENT TOLERATED WELL, BS CHECK 197, WILL CONTINUE WITH D5 FLUIDS PER MD ORDER. CALL LIGHT WITHIN REACH. WILL CONTINUE TO MONITOR.
[2016-07-06] MEDS: INSULIN DETEMIR 100 UNITS/ML 10 ML VIAL SUBQ SCH (21:12)
[2016-07-06] MEDS: DEXT 5% /NACL 0.9% 1,000 ML IV PRN (21:14)
--- NOTE | 2016-07-06 22:23 | NUR ---
PATIENT SLEEPING, NO SOB OR SIGN OF DISTRESS AT THIS TIME, CALL LIGHT WITHIN REACH. WILL CONTINUE TO MONITOR
[2016-07-07] MEDS: HYDROcodone/APAP 7.5/325 MG 1 TAB PO PRN ×2 (00:39→12:12)
--- NOTE | 2016-07-07 00:54 | NUR ---
PATIENT RESTING IN BED, COMPLAINT OF ABDOMINAL PAIN, ADMINISTERED NORCO PER MD ORDER, CALL LIGHT WITHIN REACH. WILL CONTINUE TO MONITOR.
--- NOTE | 2016-07-07 03:20 | NUR ---
PATIENT SLEEPING, NO SOB OR SIGN OF DISTRESS AT THIS TIME, CALL LIGHT WITHIN REACH. WILL CONTINUE TO MONITOR.
[2016-07-07 04:00] VITALS: BP 155/87
[2016-07-07] MEDS: NACL 0.9% 1,000 ML IV SCH ×4 (04:40→19:40)
[2016-07-07] MEDS: INSULIN LISPRO SLIDING SCALE 100 UNITS/ML VIAL SUBQ PRN ×4 (06:19→21:16)
[2016-07-07] MEDS: BLOOD GLUCOSE MONITORING 1 DEV DEV FS SCH ×4 (06:19→21:01)
--- NOTE | 2016-07-07 06:26 | NUR ---
BS CHECK. 230, ADMINISTERED INSULIN PER MD ORDER, DISCONNECTED PATIENT FROM D5 FLUIDS AND CONNECTED TO NS PER MD ORDER, WILL CONTINUE TO MONITOR.
--- NOTE | 2016-07-07 07:09 | NUR ---
ENDORSED REPORT TO DAY TELEGRAPHIC TYPEWRITER INSTALLER, PATIENT IN STABLE CONDITION.
--- NOTE | 2016-07-07 07:09 | NUR ---
ASSUMED CONTINUITY OF CARE. NO SIGNS AND SYMPTOMS OF ACUTE DISTRESS NOTED. INITIAL ASSESSMENT DONE. KEEP COMFORTABLE ON BED. EXPLAINED DIAGNOSIS, PLAN OF CARE, PAIN MANAGEMENT TEACHING, USE OF CALL LIGHT/BED/TV/BATHROOM. VERBALIZED UNDERSTANDING. CALL LIGHT WITHIN REACH.
--- NOTE | 2016-07-07 07:30 | NUR ---
Patient's Plan of Care was discussed and reviewed with STEPH: HELENA.
[2016-07-07 08:00] VITALS: BP 148/90
[2016-07-07] MEDS ORDERED: KCL 20 MEQ/WATER INJ PREMIX 200 ML IV SCH (08:00)
[2016-07-07] MEDS: PANTOPRAZOLE 40 MG INJ VIAL IVP SCH (08:27)
[2016-07-07] MEDS: LEVOFLOXACIN 500 MG/D5W PREMIX 100 ML IV SCH (08:27)
[2016-07-07] MEDS: INSULIN LISPRO 100 UNITS/ML VIAL SUBQ SCH ×3 (08:38→16:37)
[2016-07-07] MEDS: ATORVASTATIN 20 MG TAB PO SCH (08:38)
[2016-07-07] MEDS: LISINOPRIL 10 MG TAB PO SCH (08:39)
[2016-07-07] MEDS: CALCIUM CARBONATE 500 MG TAB PO SCH ×2 (08:39→21:00)
[2016-07-07] MEDS: DOCUSATE SODIUM 100 MG GELCAP PO SCH (08:39)
[2016-07-07] MEDS: CYCLOBENZAPRINE 10 MG TAB PO SCH ×3 (08:40→16:37)
[2016-07-07] MEDS: FAMOTIDINE 20 MG TAB PO SCH (08:40)
--- NOTE | 2016-07-07 09:13 | NUR ---
DR. CAVAZOS CAME MADE AWARE OF PT. LATEST LAB RESULTS. NO ORDER RECEIVED.
[2016-07-07] MEDS: KCL 20 MEQ/WATER INJ PREMIX 100 ML IV SCH ×2 (10:43→12:53)
[2016-07-07 12:00] VITALS: BP 149/89
--- NOTE | 2016-07-07 14:28 | NUR ---
SEEN ASLEEP. NO DISCOMFORT NOTED. CALL LIGHT WITHIN REACH.
[2016-07-07] MEDS: DEXT 5% /NACL 0.9% 1,000 ML IV PRN (18:19)
--- NOTE | 2016-07-07 19:14 | NUR ---
BEDSIDE REPORT GIVEN TO DEMETRIUS ANDUJAR -FERNY. IVF INFUSING WELL. IN STABLE CONDITION.
--- NOTE | 2016-07-07 19:30 | NUR ---
RECEIVED REPORT FROM BEA SQUASH CENTRE MANAGER, PATIENT IS AAOX4 SITTING UP IN BED WITH VISITORS AT BEDSIDE, PATIENT IS ON ROOM AIR, NO SOB OR SIGN OF DISTRESS AT THIS TIME, PATIENT DENIES PAIN, IV INFUSING WELL TO THE RIGHT HAND, PATENT AND INTACT, ASYMPTOMATIC. DISCUSSED PLAN OF CARE WITH PATIENT, PATIENT VERBALIZED UNDERSTANDING, SAFETY MEASURES CHECKED, CALL LIGHT WITHIN REACH. WILL CONTINUE TO MONITOR.
[2016-07-07 20:00] VITALS: BP 139/81
[2016-07-07] MEDS: AMITRIPTYLINE 25 MG TAB PO SCH (21:00)
--- NOTE | 2016-07-07 21:10 | NUR ---
BS CHECK 226, PER MD ORDER CHANGED PATIENT'S FLUIDS TO NS
[2016-07-07] MEDS: INSULIN DETEMIR 100 UNITS/ML 10 ML VIAL SUBQ SCH (21:15)
--- NOTE | 2016-07-07 21:17 | NUR ---
PM MEDS ADMINISTERED. PATIENT TOLERATED WELL. CALL LIGHT WITHIN REACH. WILL CONTINUE TO MONITOR.
--- NOTE | 2016-07-07 23:07 | NUR ---
PATIENT SLEEPING, NO SOB OR SIGN OF DISTRESS AT THIS TIME, CALL LIGHT WITHIN REACH. WILL CONTINUE TO MONITOR.
[2016-07-08] MEDS: NACL 0.9% 1,000 ML IV SCH ×4 (00:40→13:48)
[2016-07-08] MEDS: HYDROcodone/APAP 7.5/325 MG 1 TAB PO PRN (00:52)
--- NOTE | 2016-07-08 00:57 | NUR ---
PATIENT C/O PAIN, ADMINISTERED PAIN MED PER MD ORDER, CALL LIGHT WITHIN REACH. WILL CONTINUE TO MONITOR.
--- NOTE | 2016-07-08 01:32 | NUR ---
PATIENT SLEEPING, NO SOB OR SIGN OF DISTRESS AT THIS TIME, CALL LIGHT WITHIN REACH. WILL CONTINUE TO MONITOR.
--- NOTE | 2016-07-08 02:30 | NUR ---
PATIENT SLEEPING, NO SOB OR SIGN OF DISTRESS, CALL LIGHT WITHIN REACH. WILL CONTINUE TO MONITOR.
[2016-07-08 04:00] VITALS: BP 120/75
--- NOTE | 2016-07-08 04:18 | NUR ---
PATIENT SLEEPING, NO SOB OR SIGN OF DISTRESS, CALL LIGHT WITHIN REACH. WILL CONTINUE TO MONITOR
[2016-07-08] MEDS: BLOOD GLUCOSE MONITORING 1 DEV DEV FS SCH ×2 (06:20→11:47)
[2016-07-08] MEDS: INSULIN LISPRO SLIDING SCALE 100 UNITS/ML VIAL SUBQ PRN ×2 (06:20→12:14)
--- NOTE | 2016-07-08 06:30 | NUR ---
PATIENT RESTING IN BED, BS CHECK 175, NO SIGN OF DISTRESS AT THIS TIME, CALL LIGHT WITHIN REACH. WILL CONTINUE TO MONITOR.
--- NOTE | 2016-07-08 07:13 | NUR ---
ENDORSED REPORT TO DAY RN AT BEDSIDE, PATIENT IN STABLE CONDITION.
--- NOTE | 2016-07-08 07:14 | NUR ---
RECEIVED REPORT FROM FERNY ROMO. PT IS SLEEPING BUT EASILY AWAKEN, AAO X4, IV ON RIGHT HAND PATENT AND INTACT INFUSING FLUID WELL, OLD SURGICAL WOUND NOTED ON RIGHT LOWER EXTREMITY. INITIAL ASSESSMENT DONE, NO S/S OF RESPIRATORY DISTRESS OR DISCOMFORT NOTED, SAFETY/FALL PRECAUTION ENFORCED, CALL LIGHT WITHIN REACH, WILL CONTINUE TO MONITOR.
[2016-07-08 07:49] VITALS: BP 128/82
[2016-07-08] MEDS: INSULIN LISPRO 100 UNITS/ML VIAL SUBQ SCH ×2 (08:32→12:13)
[2016-07-08] MEDS: DOCUSATE SODIUM 100 MG GELCAP PO SCH (08:41)
[2016-07-08] MEDS: CYCLOBENZAPRINE 10 MG TAB PO SCH ×2 (08:41→12:10)
[2016-07-08] MEDS: ATORVASTATIN 20 MG TAB PO SCH (08:41)
[2016-07-08] MEDS: LISINOPRIL 10 MG TAB PO SCH (08:41)
[2016-07-08] MEDS: FAMOTIDINE 20 MG TAB PO SCH (08:41)
[2016-07-08] MEDS: LEVOFLOXACIN 500 MG/D5W PREMIX 100 ML IV SCH (08:42)
[2016-07-08] MEDS: PANTOPRAZOLE 40 MG INJ VIAL IVP SCH (08:42)
[2016-07-08] MEDS: CALCIUM CARBONATE 500 MG TAB PO SCH (08:42)
--- NOTE | 2016-07-08 08:49 | NUR ---
DUE MEDS GIVEN, PT TOLERATED WELL, CALL LIGHT WITHIN REACH, WILL CONTINUE TO MONITOR.
[2016-07-08] MEDS ORDERED: POTASSIUM CHLORIDE 10 MEQ TABER PO SCH (09:00)
--- NOTE | 2016-07-08 11:47 | NUR ---
BLOOD SUGAR CHECKED, 218, WILL ADMINISTER INSULIN COVERAGE, ALL NEEDS MET AT THIS TIME, CALL LIGHT WITHIN REACH, WILL CONTINUE TO MONITOR.
--- NOTE | 2016-07-08 13:20 | NUR ---
PT IS SLEEPING AT THIS TIME, NO S/S OF RESPIRATORY DISTRESS OR DISCOMFORT NOTED, CALL LIGHT WITHIN REACH, WILL CONTINUE TO MONITOR.
[2016-07-08] MEDS ORDERED: LEVEMIR100 U/M2 SC (14:16)
[2016-07-08] MEDS ORDERED: NOVOLIN R100 UNITS/ SUBQ (14:18)
[2016-07-08 16:00] VITALS: BP 121/76
--- NOTE | 2016-07-08 16:00 | NUR ---
DISCHARGE INSTRUCTIONS AND PRESCRIPTION GIVEN, PT VERBALIZED UNDERSTANDING, REMOVED ID WRISTBAND, AND IV, CATHETER TIP INTACT. PT LEFT THE UNIT AMBULATING ACCOMPANIED BY FAMILY MEMBERS, PT STABLE UPON DISCHARGE.
== END 2016-07-08 16:00 | disposition home or self-care (01) | DRG 637 ==
LOC: MED 18:05 → MLD 20:51 → MIC 07-02 03:03 → MTU 07-03 18:35
PROVIDERS: ADMIT Family Medicine; ATTEND Family Medicine
DX: E13.10 Other specified diabetes mellitus with ketoacidosis without coma (principal); N17.0 Acute kidney failure with tubular necrosis; E87.1 Hypo-osmolality and hyponatremia; L97.919 Non-pressure chronic ulcer of unspecified part of right lower leg with unspecified severity; E13.622 Other specified diabetes mellitus with other skin ulcer; E83.51 Hypocalcemia; E80.6 Other disorders of bilirubin metabolism; E83.39 Other disorders of phosphorus metabolism; I16.0 Hypertensive urgency; E78.5 Hyperlipidemia, unspecified; K21.9 Gastro-esophageal reflux disease without esophagitis; E87.6 Hypokalemia; M54.9 Dorsalgia, unspecified; Z91.81 History of falling; Z87.81 Personal history of (healed) traumatic fracture; Z91.14 Patient's other noncompliance with medication regimen